=== PATIENT | female | born 1940 | race Caucasian/White ===

== ENCOUNTER 2018-05-26 22:16 | Emergency (ER) | payer OTHER ==
[~2018-05-26] VITALS: Ht 152.4 cm; Wt 70.3 kg
[~2018-05-26 22:16] MED LIST: BENICAR HCT 12.1 TAB PO; HYDROCODONE/ACE1 TA1 PO; ZYRTEC ALLERGY10 MG PO
[2018-05-26 22:25] VITALS: BP 134/82
--- NOTE | 2018-05-26 23:47 | ED UPPER/LOWER EXTREMITY COMPL ---
History of Present Illness General Chief Complaint: Lower Extremity Injury Stated Complaint: R LEG INJURY Source: patient Exam Limitations: no limitations Vital Signs & Intake/Output Vital Signs & Intake/Output Vital Signs Date Time Temp Pulse Resp B/P B/P Pulse O2 O2 Flow FiO2 Mean Ox Delivery Rate 05/26 2225 97.8 91 20 134/82 98 Room Air ED Intake and Output 05/27 0000 08 1200 Intake Total Output Total Balance Patient 155 lb Weight Weight Reported by Patient Measurement Method Allergies Coded Allergies: NO KNOWN ALLERGIES (04/07/14) Reconcile Medications CETIRIZINE HCL (Zyrtec) 10 MG CAPSULE 1 CAP PO DAILY PRN ALLERGYS (Reported) Hydrochlorothiazide/[place]art (Benicar Hct 12.5 MG-20 MG) 1 TAB TAB 1 TAB PO DAILY BP (Reported) HYDROCODONE/ACETAMINOPHEN (Hydrocodon-Acetaminophen 5-325) 1 TAB TAB 1 TAB PO Q6HR PRN BREAKTHROUGH PAIN Triage Note: PT HERE WITH C/O RIGHT ANKLE BLEEDING THAT IS CONTROLLED. PT REPORTS SHE THOUGHT SHE HAD A TICK AND PULLED AT A SPOT WITH TWEEZERS. PER PT SHE CALLED HER DOCTOR AND WAS TOLD TO COME TO ED FOR EVALUATION. Triage Nurses Notes Reviewed? yes Onset: Gradual Duration: hour(s): Timing: single episode today Severity: moderate Pain/Injury Location: Right: Ankle. HPI: 77-year-old female presents emergency department complaining of wound to left ankle. Patient states she was gardening and she saw a black speck on her ankle. She thought that this was a tick and she used tweezers to try to pull this off. Black speck was actually the patient's vein and patient caused spurting bleeding from her ankle after disrupting the skin. Patient applied direct pressure with towels and called her primary care doctor. Primary care doctor advised her to come here to the emergency department. Patient states that currently she thinks bleeding has stopped with the pressure. Patient does not take any blood thinners. (Marielle DUFFY,Shaunna Santos) Past History Travel History Traveled to [place] past 21 day No Medical History Any Pertinent Medical History? see below for history Neurological: NONE EENT: NONE Cardiovascular: hypertension Respiratory: NONE Gastrointestinal: NONE Hepatic: NONE Renal: NONE Musculoskeletal: NONE Psychiatric: NONE Endocrine: NONE Blood Disorders: NONE Cancer(s): NONE ELECTRICAL AND INSTRUMENT MECHANIC/Reproductive: NONE Surgical History Surgical History: non-contributory Psychosocial History What is your primary language Malaysian Tobacco Use: Never used ETOH Use: denies use Illicit Drug Use: denies illicit drug use Family History Hx Contributory? No (Shaunna Hernandez) Review of Systems Review of Systems Constitutional: Reports: no symptoms. EENTM: Reports: no symptoms. Respiratory: Reports: no symptoms. Cardiovascular: Reports: no symptoms. Gastrointestinal/Abdominal: Reports: no symptoms. Genitourinary: Reports: no symptoms. Musculoskeletal: Reports: no symptoms. Skin: Reports: see HPI. Neurological/Psychological: Reports: no symptoms. Hematologic/Endocrine: Reports: no symptoms. Immunological: Reports: no symptoms. All Other Systems: Reviewed and Negative (Shaunna Hernandez) Physical Exam Physical Exam General Appearance: well developed/nourished, no apparent distress, alert, awake Head: atraumatic, normal appearance Eyes: Bilateral: normal appearance. Ears, Nose, Throat: hearing grossly normal Neck: normal inspection, supple, full range of motion Cardiovascular/Respiratory: normal peripheral pulses, no respiratory distress Peripheral Pulses: 2+ dorsalis pedis (R) Back: normal inspection, normal range of motion Foot Left: normal inspection, normal range of motion Foot Right: 2mm superficial abrasion to right ankle, no active bleeding Neurologic/Tendon: normal sensation, normal motor functions, normal tendon functions Skin: see abrasion above (Shaunna Hernandez) Progress Differential Diagnosis: cellulitis, tendon injury, abrasion, laceration Plan of Care: The patient's wound was cleaned and I applied gauze and mild pressure dressing with Coban. Patient will remove dressing tomorrow. There is no active bleeding at this time. Patient is ready to go home. Strict return precauations given. Patient educated on signs and symptoms of infection. She agrees with the plan of care. (Shaunna Hernandez) Departure Departure Disposition: HOME OR SELF CARE Condition: Stable Clinical Impression Primary Impression: Abrasion Referrals: Mauro Saucedo MD (PCP/Family) Additional Instructions: Leave dressing on until tomorrow morning and then remove dressing. With Band- Aid over the wound. Monitor for signs of infection including redness, swelling, pain, further bleeding. With any of these symptoms please return here for follow up. Please note that there might be incidental findings in your evaluation that are unrelated to the current emergency department visit. Please notify your primary care doctor about this emergency department visit in order to obtain and review all of the testing performed so that these incidental findings can be monitored as needed. If you had an x-ray performed, please understand that some fractures may not be seen on the initial set of x-rays. If your symptoms persist you might need a repeat set of x-rays to check for such a fracture. If you had a laceration evaluated, please understand that foreign bodies such as glass or wood may not be visible to the naked eye or on plain x-rays. If the wound becomes red, swollen, increasingly more painful or if there is any drainage from the wound, please have it reevaluated by a physician for the possibility of a retained foreign body. If you're unable to follow up as outlined in the discharge instructions please return to the emergency department. Thank you for choosing the [facility] Emergency Department for your care. It was a pleasure to serve you today. Departure Forms: Customer Survey General Discharge Information (Marielle DUFFY,Shaunna Santos) PA/PAPER DELIVERER Co-Sign Statement Statement: ED Attending supervision documentation- x I saw and evaluated the patient. I have also reviewed all the pertinent lab results and diagnostic results. I agree with the findings and the plan of care as documented in the PA's/PAPER DELIVERER's documentation. [] I have reviewed the ED Record and agree with the PA's/PAPER DELIVERER's documentation. [] Additions or exceptions (if any) to the PAs/PAPER DELIVERER's note and plan are summarized below: [] (Mp CRAWFORD,Eddie)
== END 2018-05-27 00:07 ==
LOC: ERH 22:16
DX: S90.511A Abrasion, right ankle, initial encounter (principal); X58.XXXA Exposure to other specified factors, initial encounter
CPT/HCPCS: 99282